=== PATIENT | male | born 1985 | race Caucasian/White ===

== ENCOUNTER 2022-04-05 23:56 | Emergency (ER) | payer OTHER, SELFPAY ==
[2022-04-05 23:58] VITALS: BP 133/90; PULSE 73; RESP 16; TEMP 35.8; O2SAT 99; BMI 41.0
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
[2022-04-06] MEDS: traMADol 50 MG Tablet PO (00:11)
[2022-04-06] MEDS: Ketorolac 60 MG/2 ML Vial IM (00:11)
[2022-04-06 01:45] VITALS: PULSE 87; RESP 15; O2SAT 99
[2022-04-06] MEDS: Morphine 4 MG/ML Syringe IM (02:12)
== END 2022-04-06 02:47 | disposition home or self-care (01) ==
PROVIDERS: Emergency Provider Emergency Medicine; PCP Family Medicine; Visit Provider Emergency Medicine
DX: S22.089A Unspecified fracture of T11-T12 vertebra, initial encounter for closed fracture (principal); S32.019A Unspecified fracture of first lumbar vertebra, initial encounter for closed fracture; S20.211A Contusion of right front wall of thorax, initial encounter; S30.811A Abrasion of abdominal wall, initial encounter; V47.5XXA Car driver injured in collision with fixed or stationary object in traffic accident, initial encounter; Y92.410 Unspecified street and highway as the place of occurrence of the external cause; Y93.84 Activity, sleeping; I10 Essential (primary) hypertension; F17.210 Nicotine dependence, cigarettes, uncomplicated
CPT/HCPCS: 71046; 72070; 72100; 96372; 99284

== ENCOUNTER → 2022-04-27 | Outpatient (CLI) | payer OTHER, SELFPAY ==
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
--- NOTE | 2022-04-27 11:42 | MRI_ITS ---
STUDY: MRI LUMBAR SPINE WITHOUT CONTRAST REASON FOR EXAM: Male, 36 years old. COMPRESSION FX L1 TECHNIQUE: Standardized fat and water weighted pulse sequences were obtained in the sagittal and axial planes. COMPARISON: X-ray the lumbar spine dated April 06, 2022 FINDINGS: Normal lumbar lordosis. There is no substantial scoliosis. Normal conus medullaris that terminates at the T12-L1 level. There are acute compression fractures of the T12 and L1 vertebral bodies, with mild loss of vertebral body height at approximately 20%, nondisplaced fracture lines, and mild to moderate surrounding edema. No retropulsion is demonstrated. T11-T12: Moderate to significant disc space narrowing with minor posterior annular bulging which contributes to mild central canal stenosis and mass effect on anterior aspect of the cord. Normal bilateral facet joints. Normal bilateral intervertebral neural foramina. T12-L1: Normal endplates. Normal disc height, hydration and morphology. Normal bilateral facet joints. Normal central canal and bilateral lateral recesses. Normal bilateral intervertebral neural foramina. L1-2: Small Schmorl''s node. Normal disc height, hydration and morphology. Normal bilateral facet joints. Normal central canal and bilateral lateral recesses. Normal bilateral intervertebral neural foramina. L2-3: Small Schmorl''s node. Normal disc height, hydration and morphology. Normal bilateral facet joints. Normal central canal and bilateral lateral recesses. Normal bilateral intervertebral neural foramina. L3-4: Small Schmorl''s nodes on both sides of the disc space. Normal disc height, hydration and morphology. Normal bilateral facet joints. Normal central canal and bilateral lateral recesses. Normal bilateral intervertebral neural foramina. L4-5: Normal endplates. Normal disc height, hydration and morphology. Normal bilateral facet joints. Normal central canal and bilateral lateral recesses. Normal bilateral intervertebral neural foramina. L5-S1: Normal endplates. Normal disc height, hydration and morphology. Normal bilateral facet joints. Normal central canal and bilateral lateral recesses. Normal bilateral intervertebral neural foramina. Normal visualized sacral ala. Normal visualized paraspinous soft tissue structures. MRI/Spine Lumbar (Routine) IMPRESSION: 1. Mild acute compression fractures of the T12-L1 vertebral bodies 2. Minimal degenerative changes of the lumbar spine. 3. Mild central canal stenosis and mass effect on anterior aspect of the cord at T11-T12 Electronically Signed: Ronaldo Ferguson MD at 14:38 EDT ,
== END | disposition home or self-care (01) ==
LOC: MRI 11:25
PROVIDERS: PCP Family Medicine; Referring Provider Orthopaedic Surgery; Visit Provider Orthopaedic Surgery
DX: S22.080A Wedge compression fracture of T11-T12 vertebra, initial encounter for closed fracture (principal); S32.010A Wedge compression fracture of first lumbar vertebra, initial encounter for closed fracture; M51.16 Intervertebral disc disorders with radiculopathy, lumbar region
CPT/HCPCS: 72146; 72148